=== PATIENT | female | born 1935 | race Caucasian/White ===

== ENCOUNTER 2017-03-22 10:42 | Day surgery (SDC) | payer MEDICARE ==
[2017-03-21 10:18] LABS: HEMATOCRIT 37.4 % (36.0-48.0); HEMOGLOBIN 12.3 g/dL (12.0-16.0)
[2017-03-21 10:33] LABS: BUN (BLOOD UREA NITROGEN) 15 MG/DL (6-23); CALCIUM, SERUM 8.9 MG/DL (8.5-10.4); CHLORIDE, SERUM 100 MMOL/L (96-112); CO2 (CARBON DIOXIDE) 32 MMOL/L (24-34); CREATININE 0.82 MG/DL (0.55-1.02); GFR AFRICAN AMERICAN 78 ML/MIN (>=60); GFR NON AFRICAN AMERICAN 68 ML/MIN (>=60); GLUCOSE, SERUM 91 MG/DL (60-99); POTASSIUM, SERUM 4.4 MMOL/L (3.5-5.3); SODIUM, SERUM 138 MMOL/L (135-148)
--- NOTE | ~2017-03-22 | OP ---
Record Of Operation [facility] [address] [place]. [address] NAME: JULIOCESAR LOVETT : 39 STATUS : [facility]#: [id number] AGE: 82 ADM/REG DATE : 03/22/17 MR#: [id number] REPORT SERV DATE: 03/22/17 DICTATED BY: WALE HUBBARD DATE: 03/22/17 REPORT STATUS : Draft TRANSCRIBED BY: MODL DATE: 03/22/17 DATE OF PROCEDURE: 03/22/2017 DIAGNOSES: 1. Presumed osteoporosis. 2. Pathologic compression fracture at L3. 3. Severe lumbalgia secondary to the above. PROCEDURE: L3 kyphoplasty using fluoroscopic guidance. ANESTHESIA: General. PREPROCEDURAL ANTIBIOTICS: None. INTERIM HISTORY: Noncontributory. LABS: Reviewed. COMPLICATIONS: None. ESTIMATED BLOOD LOSS: Less than 10 mL. FLUIDS: Approximately 800 mL. CONSENT: Informed consent was given and a signed informed consent document was obtained. Risks and benefits were explained in detail to the patient and the patient's family, and she wished to proceed. OPERATIVE PROCEDURE: The patient was brought to the operating room and placed on the exam table on chest rolls in a comfortable prone position. The operative field was prepped with Hibiclens followed by ChloraPrep and Ioban and draped in a sterile fashion. Local anesthesia, both superficial and deep, was provided by local infiltration with a total of approximately 12 mL of a 50:50 mixture of 1% lidocaine and 0.5% Marcaine with epi. Deep anesthesia was provided to the level of the pedicles using a 22-gauge, 3.5-inch spinal needle as this also allowed corroboration between AP and lateral fluoroscopy at the correct level. Two C-arms were used throughout the procedure in biplanar fashion and radiographs were made. Attention was focused on the right L3 pedicle. Using a 15 blade scalpel, a small skin kelly was made just lateral to the right pedicle under AP view. Size 2 (Express) trocar was then mounted to the right pedicle just past the posterior margin of the vertebral body using multiple radiographic views under AP and lateral projections. The kyphotic biopsy device was then cored under continuous live fluoroscopy until reaching the junction of the anterior one-third and posterior two-thirds of the vertebral body under lateral projection. The biopsy device was near the midline on the AP view. The same procedure was then repeated on the left side and kyphotic balloon tamps were placed through each introducer. The Record Of Operation [facility] [address] [place]. [address] NAME: JULIOCESAR LOVETT : 39 STATUS : [facility] PAT#: [id number] AGE: 82 ADM/REG DATE : 03/22/17 MR#: [id number] REPORT SERV DATE: 03/22/17 DICTATED BY: WALE HUBBARD DATE: 03/22/17 REPORT STATUS : Draft TRANSCRIBED BY: REBEKAH DATE: 03/22/17 inflatable bone tamps were then filled with contrast to a pressure of approximately 250 psi and radiographs revealed excellent intraosseous cavity formation on AP and lateral projections with some fracture reduction noted. The balloon tamps were then deflated and removed and a total of approximately 6 mL of polymethylmethacrylate (PMMA) was pushed through the introducers after being mixed and given time to harden. The patient tolerated this well and radiographs revealed excellent intraosseous bone cement spread with good inner digitation and only a minimal amount of lateral vertebral extravasation on the right. All needles, introducers, and other percutaneous equipment were removed. The skin nicks were cleansed, covered, and dressed. The patient tolerated the procedure well, and there were no complications. She was taken to the recovery area in good condition and will be provided with postprocedural instructions. She will also be provided with contact information and instructed to call regarding any concerning symptoms or questions. IMPRESSION: 1. Successful kyphoplasty of L3 level. 2. Bone biopsies from the level of L3 were sent to pathology for further examination. 3. Radiographs were taken with details noted above. BRENNANR/REBEKAH Wale Hubbard M.D. / [id number] CC: Richard Baeza M.D.
[~2017-03-22 10:42] MED LIST: AZO-CRANBERY450 MG OR; CENTRUM TAB1 TAB PO; CITRACAL PO; COQ-10200 MG OR; ESTRACE VAG0.1 MG/GM V; ESTRACE VAGIN42.5 GM V; FISH OIL1200 MG PO; KLONO2 PO; LEVOTHYROXIN88 MCG PO; MULTIPLE VIT PO; MULTIVIT/MIN PO; PCET PO; PEP20 PO; PRIN20 PO; PROLOP100 PO; PROZAC PO; VITAMIN D31000 UNIT PO; ZOCOR10 PO; ZYP2 PO; ZYP5 PO
[2017-03-22 14:05] LABS: PLATELET COUNT 170 10/3/uL (150-400)
[2017-07-04] MEDS ORDERED: CO Q-10200 MG PO (14:44)
[2017-07-04] MEDS ORDERED: CITRACAL PO (14:45)
[2017-07-06] MEDS ORDERED: ULTRAM50 PO (10:31)
== END 2017-03-22 17:24 | disposition home or self-care (01) ==
LOC: SDC 10:42
PROVIDERS: Emergency Medicine Sports Medicine
PROC: 0QU03JZ Supplement Lumbar Vertebra with Synthetic Substitute, Percutaneous Approach (ICD-10-PCS; 2017-03-22)
PROC: 0QB03ZX Excision of Lumbar Vertebra, Percutaneous Approach, Diagnostic (ICD-10-PCS; 2017-03-22)
PROC: 0QS03ZZ Reposition Lumbar Vertebra, Percutaneous Approach (ICD-10-PCS; principal; 2017-03-22 12:15)
DX: M48.56XA Collapsed vertebra, not elsewhere classified, lumbar region, initial encounter for fracture (principal); M54.5 Low back pain; I10 Essential (primary) hypertension; G89.29 Other chronic pain; M79.7 Fibromyalgia; F41.9 Anxiety disorder, unspecified; F41.0 Panic disorder [episodic paroxysmal anxiety]; E03.9 Hypothyroidism, unspecified; Z88.2 Allergy status to sulfonamides; Z88.5 Allergy status to narcotic agent; Z88.8 Allergy status to other drugs, medicaments and biological substances; Z88.1 Allergy status to other antibiotic agents; Z88.4 Allergy status to anesthetic agent; Z79.818 Long term (current) use of other agents affecting estrogen receptors and estrogen levels; Z79.899 Other long term (current) drug therapy
CPT/HCPCS: 76000; 80048; 85014; 85018; 85049; 88307; 88311; 93005; C1726; J0690; J1170; J2250; J2405; J2710; J3010; Q9967